=== PATIENT | female | born 1975 | race American Indian/Alaskan Native ===

== ENCOUNTER 2017-10-18 17:59 | Emergency (ER) | payer SELFPAY ==
[2017-10-18] MEDS ORDERED: XYLOCAINE 1% MPF 5 mL INFILTRATI ONE ×2 (22:59)
--- NOTE | 2017-10-18 23:04 | Emergency Department Report ---
ED Female HPI - General Chief complaint: Pain General Stated complaint: VAGINAL PAIN Time Seen by Provider: 10/18/17 22:53 Source: patient Mode of arrival: Ambulatory Limitations: No Limitations - History of Present Illness Initial comments: Patient is a 41-year-old -[place] female [place] female residual right sided Bartholin's cyst recurrent for 10 years pain and swelling that started yesterday pain and swelling that started yesterday usual location there is no drainage no fever no vaginal discharge ,no abdominal pain or nausea vomiting Onset/Timin -: days(s), unknown (recurring Bartholion Cyst abscess) Location: labia Radiation: non-radiating Severity: moderate Severity scale (0 -10): 5 Quality: sharp Consistency: constant Improves with: none Worsens with: other (palpation) Are you Now?: No Last Menstrual Period: 10/10/17 EDC: 07/17/18 Associated Symptoms: denies: vaginal discharge, vaginal bleeding, abdominal pain , nausea/vomiting, fever/chills, headaches, loss of appetite, dysuria, hematuria , rash, shortness of breath, syncope, weakness - Related Data Sexually active: Yes Previous Rx's Medication Instructions Recorded Last Taken Type Sulfamethoxazole/Trimethoprim 1 each PO BID #20 tablet 10/18/17 Unknown Rx [Bactrim DS TAB] traMADol [Ultram] 50 mg PO Q6HR PRN #12 tablet 10/18/17 Unknown Rx Allergies Allergy/AdvReac Type Severity Reaction Status Date / Time No Known Allergies Allergy Unverified 10/18/17 22:58 ED Review of Systems ROS: Stated complaint: VAGINAL PAIN Other details as noted in HPI Constitutional: denies: chills, fever Eyes: denies: eye pain, eye discharge, vision change ENT: denies: ear pain, throat pain Respiratory: denies: cough, shortness of breath, wheezing Cardiovascular: denies: chest pain, palpitations Endocrine: no symptoms reported (R) Gastrointestinal: denies: abdominal pain, nausea, diarrhea Genitourinary: other (while Bartholin 1cyst ). denies: urgency, dysuria, frequency, hematuria, discharge, abnormal menses, dyspareunia Musculoskeletal: denies: back pain, joint swelling, arthralgia Skin: denies: rash, lesions Neurological: denies: headache, weakness, paresthesias Psychiatric: denies: anxiety, depression Hematological/Lymphatic: denies: easy bleeding, easy bruising ED Past Medical Hx - Medications Home Medications: Home Medications Medication Instructions Recorded Confirmed Last Taken Type Sulfamethoxazole/Trimethoprim 1 each PO BID #20 tablet 10/18/17 Unknown Rx [Bactrim DS TAB] traMADol [Ultram] 50 mg PO Q6HR PRN #12 tablet 10/18/17 Unknown Rx ED Physical Exam - General Limitations: No Limitations General appearance: alert, in no apparent distress - Head Head exam: Present: atraumatic, normocephalic - Eye Eye exam: Present: normal appearance - ENT ENT exam: Present: mucous membranes moist - Neck Neck exam: Present: normal inspection - Respiratory Respiratory exam: Present: normal lung sounds bilaterally (no one). Absent: respiratory distress - Cardiovascular Cardiovascular Exam: Present: regular rate, normal rhythm. Absent: systolic murmur, diastolic murmur, rubs, gallop - GI/Abdominal GI/Abdominal exam: Present: soft, normal bowel sounds - Rectal Rectal exam: Present: deferred - External exam: Present: lesions, other (barholin Cyst /Ascess left ) - Extremities Exam Extremities exam: Present: normal inspection - Back Exam Back exam: Present: normal inspection - Neurological Exam Neurological exam: Present: alert, oriented X3 - Psychiatric Psychiatric exam: Present: normal affect, normal mood - Skin Skin exam: Present: warm (L broncho-L and then the.), dry, intact, normal color. Absent: rash ED Course Vital Signs 10/18/17 18:48 Temperature 98.2 F Pulse Rate 98 H Respiratory 16 Rate Blood Pressure 126/81 O2 Sat by Pulse 99 Oximetry - I & D Right Vagina Type of Procedure: Simple Site: Bartholin Abscess /Cyst Blade Size: 11 I & D Procedure: betadine prep Left Vagina Type of Procedure: Simple Site: left bartholin abscess Blade Size: 11 I & D Procedure: betadine prep, sterile drapes applied, gauze wick placed Progress: left bartholn abscess cleaned with betadine solution, anesthesia with 1% lidocaine 2 cc, incision with 11 blade, straight incision, bloody purulent drainage, moderat amount irrigated with sterile saline 40 cc, 1/4 inch iodoform packing, abd pad applied, pt given wound care instructions, verbalized understanding of same, all bleeding is controlled, pt tolerated procedure with minimal distress. ED Medical Decision Making - Medical Decision Making The labia Bartholin cyst for I&D see procedure note patient tolerated with minimal distress patient given wound care instructions. verbalized agreement and understanding of same, pt for DC to home with Bactrim DS and Ultram by mouth patient verbalizes agreement and understanding of discharge plan for DC to home in stable condition at this time Critical care attestation.: If time is entered above; I have spent that time in minutes in the direct care of this critically ill patient, excluding procedure time. ED Disposition Clinical Impression: Bartholin's gland abscess Disposition: DC-01 TO HOME OR SELFCARE Is pt being admited?: No Does the pt Need Aspirin: No Condition: Good Instructions: Bartholin Cyst (ED) Prescriptions: Sulfamethoxazole/Trimethoprim [Bactrim DS TAB] 1 each PO BID #20 tablet traMADol [Ultram] 50 mg PO Q6HR PRN #12 tablet PRN Reason: Pain Referrals: TIMA MARTINEZ MD [Staff Physician] - 3-5 Days Forms: Work/School Release Form(ED) Time of Disposition: 23:56
[2017-10-18] MEDS ORDERED: ULTRAM PO ONE (23:45)
[2017-10-18] MEDS ORDERED: BACTRIM DS PO ONE (23:45)
[2017-10-19 00:10] VITALS: BP 124/80
== END 2017-10-19 00:14 | disposition home or self-care (01) ==
LOC: ED 17:59
DX: N75.1 Abscess of Bartholin's gland (principal)
CPT/HCPCS: 99282